=== PATIENT | male | born 1985 | race African-American/Black ===

== ENCOUNTER 2021-11-25 08:58 | Emergency (ER) | payer SELFPAY ==
[~2021-11-25] VITALS: Ht 172.7 cm; Wt 108.9 kg
== END 2021-11-25 10:02 | disposition home or self-care (01) ==
LOC: FSED 09:44
DX: L25.9 Unspecified contact dermatitis, unspecified cause (principal); Z85.89 Personal history of malignant neoplasm of other organs and systems
CPT/HCPCS: 99282